=== PATIENT | male | born 1975 | race Two or more races ===

== ENCOUNTER 2017-08-22 15:26 | Day surgery (SDC) | END 2017-08-22 17:31 | disposition home or self-care (01) ==

== ENCOUNTER 2018-09-12 07:16 | Day surgery (SDC) | payer OTHER ==
[2018-09-12] VITALS (12 sets, daily range): BP systolic 101–116; BP diastolic 49–69; PULSE 54–80; RESP 12–27; Ht 172.7 cm; Wt 90.3 kg
[~2018-09-12] VITALS: Ht 172.7 cm; Wt 90.3 kg
[~2018-09-12 07:16] MED LIST: BALANCED SALT SOLN 15 ML OPH IRRIG ONE; DICLOFENAC 0.1% 2.5 ML OPH OPER SCH; LIDOCAINE 4% (MPF) 5 ML INJ OPER ONE; MOXIFLOXACIN 0.5% 3 ML OPH OPER SCH; denies
--- NOTE | 2018-09-12 07:41 | PREAC ---
Date/Time of Note Date/Time of Note DATE: 09/12/18 TIME: 07:39 Anesthesia Eval and Record Evaluation Time Pre-Procedure Interview DATE: 09/12/18 TIME: 07:39 Age 43 Sex male NPO: 8 hrs Preoperative diagnosis R eye pterygium Planned procedure R eye pterygium excision Past Medical History Past Medical History: Includes (insomnia) Surgery & Anesthesia Issues No known issue (previous L eye pterygium) Meds Anticoagulation: No Beta Dustin within 24 hr: No Reason Beta Dustin not given: Pt. not on B-Dustin Reported Medications [denies] No Conflict Check 09/25/09 Current Medications Diclofenac Sodium (Voltaren 0.1%) 1 drop Q5 MIN X 3 OPER ; Start 09/12/18 at 06:00 Moxifloxacin HCl (Vigamox) 1 drop Q5 MIN X 3 OPER ; Start 09/12/18 at 06:00 Meds reviewed: Yes Allergies Coded Allergies: No Known Drug Allergies (Verified Allergy, Mild, 08/22/17) Allergies Reviewed: Yes Labs/Studies Labs Reviewed: Reviewed by anesthesiologist test: N/A Studies: ECG (nsr, left axis deviation), CXR (no active disease) Pre-procedure Exam Airway: Adequate mouth opening, Adequate thyromental dist Mallampati: Mallampati II Teeth: Normal Lung: Normal Heart: Normal ASA Physical Status ASA physical status: 1 Emergency: None Planned Anesthetic General/MAC: MAC Pre-operative Attestations Prior to commencing anesthesia and surgery, the patient was re-evaluated, there was verification of: *The patient's identity *The results of appropriate recent lab work and preoperative vital signs *The above evaluation not changing prior to induction *Anesthetic plan, risk benefits, alternative and complications discussed with patient/family; questions answered; patient/family understands, accepts and wishes to proceed. VON SMALLWOOD September 12, 2018 07:41
[2018-09-12] MEDS ORDERED: TOPI25TA10 PO (07:42)
[2018-09-12] MEDS ORDERED: ONDANSETRON 4 MG INJ IV PRN (08:00)
[2018-09-12] MEDS ORDERED: OXYCODONE/ACETAMINOPHEN (5/325) TAB PO PRN (08:00)
[2018-09-12] MEDS ORDERED: hydrALAzine 20 MG INJ IV PRN (08:00)
[2018-09-12] MEDS ORDERED: DIPHENHYDRAMINE 50 MG INJ IV PRN (08:00)
[2018-09-12] MEDS ORDERED: ACETAMINOPHEN 500 MG TAB PO PRN (08:00)
[2018-09-12] MEDS ORDERED: ALBUTEROL 0.083% (NEB) 2.5 MG/3 ML AMP HHN PRN (08:00)
[2018-09-12] MEDS ORDERED: ACETAMINOPHEN 325 MG TAB PO PRN (08:00)
[2018-09-12] MEDS ORDERED: LABETALOL HCL 20MG INJ IV PRN (08:00)
[2018-09-12] MEDS ORDERED: FENTAnyl 50 MCG/ML VIAL IV PRN (08:00)
[2018-09-12] MEDS ORDERED: LIDOCAINE /PF 2% 10 ML AMPUL ONE (08:29)
[2018-09-12] MEDS ORDERED: BUPIVACAINE 0.5% (SDV) 30 ML INJ ONE (08:29)
[2018-09-12] MEDS ORDERED: TOBRAMYCIN/DEXAMETH 3.5 GM OPH OINT ONE (08:31)
[2018-09-12] MEDS ORDERED: MOXIFLOXACIN 0.5% 3 ML OPH ONE (08:31)
--- NOTE | 2018-09-12 08:42 | HPN ---
Date/Time of Note Date/Time of Note DATE: 09/12/18 TIME: 08:42 Interval H&P Admission Note Pt. seen H&P reviewed: No system changes CORINA ROSENBERG September 12, 2018 08:42
[2018-09-12] MEDS ORDERED: LIDOCAINE 1.5%/EPI MPF (SDV) 30 ML VIAL ONE (08:52)
[2018-09-12] MEDS ORDERED: EPINEPHrine 1 MG/ML 30 ML INJ IRR ONE (09:21)
[2018-09-12] MEDS ORDERED: TETRACAINE 0.5% 4 ML OPH OP ONE (09:24)
--- NOTE | 2018-09-12 09:51 | PAC ---
Date/Time of Note Date/Time of Note DATE: 09/12/18 TIME: 09:51 Post-Anesthesia Notes Post-Anesthesia Note Last documented vital signs Vital Signs Date Temp Pulse Resp B/P (MAP) Pulse Ox O2 O2 Flow FiO2 Time Delivery Rate 09/12/18 97.5 71 16 104/57 96 Room Air 08:15 (73) Activity: WNL Respiratory function: WNL Cardiovascular function: WNL Mental status: Baseline Pain reasonably controlled: Yes Hydration appropriate: Yes Nausea/Vomiting absent: Yes Serafin Alejo M.D. September 12, 2018 09:51
--- NOTE | 2018-09-12 10:16 | OPR ---
Date/Time of Note Date/Time of Note DATE: 09/12/18 TIME: 09:57 Operative Report Free Text/Dictation Procedure Date: 09/12/18 Pre-operative diagnosis: Visually significant pterygium, right eye Postoperative diagnosis: Visually significant pterygium, right eye Procedure: 1- Pterygium excision 2- superficial keratectomy 3- autograft placement Surgeon: Corina Rosenberg MD Executive Services Administrator: none Anesthesia Type: MAC, local anesthesia (RBB) Anesthesiologist: Dr. Worrell Tourniquet Time: NA Estimated blood loss: None Transfusions: none Specimen: None Grafts/Implants: None Tubes/Drains: None Complications: None Pt Condition Post Procedure: Stable Disposition: home Findings: opacified lens Indications for procedure: The patient is 43 year-old male with Visually significant pterygium, who presented with blurred vision, chronic redness and imitation right eye. Past medical history is not significant. Past surgical history is significant for pterygium left eye. The patient is not using any medications . There is no known allergy. There is no history of glaucoma or any other hereditary ophthalmic disease in the family. Review of system is negative except for the chronic irritation in the affected eye. VA in the operated eye 20/30, IOP 14 mmHg. Pupils are reactive with no RAPD. Slit lamp exam: pterygium scar tissue over nasal cornea [id number] , deep anterior chamber,clear lens, there is no psudoexfoliation present at the pupillary margin or anterior lens capsule. On funds exam cup/disc ratio is 0.2, macula shows normal foveal reflex, retina is attached. Risk, benefit and alternative to pterygium surgery was explained to the patient, who agreed to proceed with the procedure. The informed consent was signed by the patient. Description of procedure: The patient was seen by me along with anesthesia team in the pre op area and the surgical site was marked and confirmed. Anesthetic drops along with dilating drops was instilled in surgical eye in the pre op. The patient was then brought back to the operating room placed in supine position. Retrobulbar block was injected by 5cc of lidocaine 2% mixed with Marcaine. The eye was prepped with Betadine 5% and draped in sterile manner for the ophthalmic surgery. An eyelid speculum was was placed to keep the eyelid open. 1.5% lidocaine with epinephrine was injected under the pterygium. Using forceps the head of pterygium was grabbed and detached from cornea by sharp blade. The pterygium from cornea and the abnormal scar tissue nasal to cornea was excised by scissors. Hemostasis was done using cautery. Subconjunctival injection of lidocaine with epi was done under superior conjunctiva. The healthy conjunctiva was from underlying tenon in size of bare sclera. Using fibrin glue, the graft was placed over the bare sclera. Using two forceps graft was pushed against the recipient conjunctiva. The extra glue was removed from the surface. The speculum was removed. Vigamox drops and Sterile antibiotic/steroid ointment was applied to the eye. A cotton patch and clear shield were placed over the operative eye. The patient was transferred to the recovery room in stable condition. Corina Rosenberg MD [id number] CORINA ROSENBERG September 12, 2018 10:16
== END 2018-09-12 11:00 | disposition home or self-care (01) ==
LOC: SDS 07:16
PROVIDERS: ATTEND Ophthalmology
DX: H11.001 Unspecified pterygium of right eye (principal)
CPT/HCPCS: 65426; Z7512; Z7610; J0171